=== PATIENT | male | born 1950 | race Native Hawaiian/Other Pacific Islander ===

== ENCOUNTER 2018-04-27 10:43 | Observation (INO) | END 2018-04-28 15:10 | disposition home or self-care (01) | CPT/HCPCS: 36415; 70450; 80053; 83690; 85025; 85610; 96361; 96365; 96375; 96376; 99283; 99284; A9270; G0378; J1170; J1650 ==

== ENCOUNTER 2018-06-16 10:59 | Emergency (ER) | payer MEDICARE ==
[2018-06-16] MEDS ORDERED: SODIUM CHLORIDE 0.9% 1,000 ML IV ONE ×2 (12:36)
[2018-06-16] MEDS ORDERED: PIPERACILLIN/TAZOBACTAM 3.375 GM in SODIUM CHLORIDE 0.9% MINIBAG 100 ML IV STA (12:36)
[2018-06-16] MEDS ORDERED: VANCOMYCIN INJ 1 GM in SODIUM CHLORIDE 0.9% 500 ML IV STA (12:36)
--- NOTE | 2018-06-16 12:40 | ED Physician Documentation ---
History of Present Illness - Stated complaint Stated Complaint: POST SURGICAL COMPLICATIONS - Chief complaint Chief Complaint: General - History obtained from History obtained from: Patient - History of Present Illness Timing: Today Pain level max: 4 Pain level now: 3 Improved by: nothing Worsened by: nothing - Additonal information Additional information: Patient is a 67-year-old male who had surgery on his lumbar spine at [facility] on June [address] Person. Today he woke up in his bed and noticed that she eats for wet with blood. Has noted continued draining from the wound. States has had subjective fevers and chills at home. No vomiting. Does have a recurrent headache. Is not having numbness or tingling in his legs. No loss of bowel or bladder control. 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 HEENT: None Psych: Depression, Post traumatic stress disorder Musculoskeletal: Chronic back pain Derm: None - Past Surgical History Past Surgical History: Yes Ortho: Spine surgery Neuro: Other - Present Medications Home Medications: Ambulatory Orders Medication Instructions Recorded Confirmed Atorvastatin Calcium 20 mg PO QPM 04/27/18 04/27/18 Cyclobenzaprine [Flexeril] 10 mg PO TID PRN 04/27/18 04/27/18 Multivitamin W/Minerals [Theragran 1 each PO DAILY 04/27/18 04/27/18 M] Prazosin HCl [Minipress] 4 mg PO QPM 04/27/18 04/27/18 Prazosin HCl [Minipress] 5 mg PO QPM 04/27/18 04/27/18 Valproic Acid [Depakene] 1,000 mg PO QPM 04/27/18 04/27/18 Vardenafil HCl [Levitra] 20 mg PO PRN PRN 04/27/18 04/27/18 Venlafaxine ER [Effexor ER] 225 mg PO DAILYWM 04/27/18 04/27/18 Zolpidem Tartrate [Ambien] 10 mg PO QPM PRN 04/27/18 04/27/18 raNITIdine HCl [Ranitidine HCl] 300 mg PO QPM 04/27/18 04/27/18 risperiDONE [Risperidone] 2 mg PO QPM 04/27/18 04/27/18 Ibuprofen [Motrin] 600 mg PO Q6HR PRN #60 tablet 04/28/18 Ondansetron [Zofran Odt] 8 mg PO Q8HR PRN #30 tab.rapdis 04/28/18 - Allergies Allergies/Adverse Reactions: Allergies Allergy/AdvReac Type Severity Reaction Status Date / Time bee venom protein (honey bee) Allergy Anaphylaxis Verified 06/16/18 11:09 shellfish derived Allergy Respiratory Verified 06/16/18 11:09 - Social History Does the pt smoke?: No Smoking Status: Never smoker Does the pt drink ETOH?: No Does the pt have substance abuse?: No - Immunizations Immunizations are current?: Yes - POLST Patient has POLST: No POLST Status: Full Code PD ED PE NORMAL - Vitals Vital signs reviewed: Yes - General General: Alert and oriented X 3, No acute distress - HEENT HEENT: Moist mucous membranes - Neck Neck: Supple, no meningeal sign - Cardiac Cardiac: RRR, Strong equal pulses - Respiratory Respiratory: No respiratory distress, Clear bilaterally - Abdomen Abdomen: Soft, Non tender, Non distended - Back Back: Other (low lumbar spine, Wound dehiscence at the distal aspect of the incision. There is bloody purulent drainage from the wound.) - Derm Derm: Warm and dry - Neuro Neuro: Alert and oriented X 3 - Psych Psych: Normal mood, Normal affect Results - Vitals Vitals: Vital Signs - 24 hr 06/16/18 06/16/18 06/16/18 11:06 11:18 14:21 Temperature 36.6 C Heart Rate 106 H 94 91 Respiratory 22 16 15 Rate Blood Pressure 130/85 H 128/72 O2 Saturation 98 97 98 06/16/18 06/16/18 06/16/18 14:49 16:00 16:05 Temperature 98.7 C H Heart Rate 88 94 Respiratory 15 15 Rate Blood Pressure 112/63 115/72 O2 Saturation 97 98 Oxygen O2 Source Room air - Labs Labs: Laboratory Tests 06/16/18 06/16/18 06/16/18 12:50 12:50 13:08 WBC 17.1 H RBC 4.20 L Hgb 13.4 L Hct 38.9 L MCV 92.8 MCH 31.8 H MCHC 34.3 RDW 14.2 Plt Count 339 MPV 6.3 L Neut # (Auto) 15.1 H Lymph # (Auto) 0.5 L [place] # (Auto) 1.4 H Eos # (Auto) 0.0 Baso # (Auto) 0.1 Absolute Nucleated RBC 0.01 Nucleated RBC % 0.1 Sodium 130 L Potassium 4.4 Chloride 99 L Carbon Dioxide 22 Anion Gap 9.0 BUN 9 Creatinine 1.0 Estimated GFR (MDRD) 75 L Glucose 124 H Lactic Acid 1.1 Calcium 8.8 Total Bilirubin 0.8 AST 13 ALT 12 Alkaline Phosphatase 65 Total Protein 6.7 Albumin 3.3 Globulin 3.4 Albumin/Globulin Ratio 1.0 Lipase 23 PD MEDICAL DECISION MAKING - ED course Complexity details: reviewed results, re-evaluated patient, considered differential, d/w patient, d/w health and safety consultant ED course: D/w Dr. Christopher (EPRO) at 1310 and recommends talking to Donny BILLINGSLEY. Spoke with JOSE CRUZ Villavicencio at [address] Christopher called back at 1340 and we are awaiting a bed confirmation at [facility], states unknown ETA but will be today. Bed confirmation received. Pain well controlled. Given vancomycin and Zosyn. Also given IV fluids. Patient transferred to [facility] This document was made in part using voice recognition software. While efforts are made to proofread this document, sound alike and grammatical errors may occur. - Sepsis Event Vital Signs: Vital Signs - 24 hr 06/16/18 06/16/18 06/16/18 11:06 11:18 14:21 Temperature 36.6 C Heart Rate 106 H 94 91 Respiratory 22 16 15 Rate Blood Pressure 130/85 H 128/72 O2 Saturation 98 97 98 06/16/18 06/16/18 06/16/18 14:49 16:00 16:05 Temperature 98.7 C H Heart Rate 88 94 Respiratory 15 15 Rate Blood Pressure 112/63 115/72 O2 Saturation 97 98 Oxygen O2 Source Room air Departure - Departure Disposition: 02 Transfer Acute Care Hosp Clinical Impression: Wound infection after surgery Qualifiers: Encounter type: initial encounter Qualified Code(s): T81.4XXA - Infection following a procedure, initial encounter Condition: Stable Discharge Date/Time: 06/16/18 16:12
[2018-06-16 13:16] LABS: BASOPHILS # (AUTO) 0.1 10^3/uL (0.0-0.1); BASOPHILS % (AUTO) 0.5 %; EOSINOPHILS % (AUTO) 0.2 %; HGB - HEMOGLOBIN 13.4 g/dL (14.0-18.0); LYMPHOCYTES # (AUTO) 0.5 10^3/uL (1.5-3.5); LYMPHOCYTES % (AUTO) 3.1 %; MEAN CORPUSCULAR HEMOGLOBIN 31.8 pg (27.0-31.0); MEAN CORPUSCULAR HGB CONC 34.3 g/dL (32.0-36.0); MEAN CORPUSCULAR VOLUME 92.8 fL (80.0-94.0); MEAN PLATELET VOLUME 6.3 fL (7.4-11.4); MONOCYTES # (AUTO) 1.4 10^3/uL (0.0-1.0); MONOCYTES % (AUTO) 8.1 %; NEUTROPHILS # (AUTO) 15.1 10^3/uL (1.5-6.6); NEUTROPHILS % (AUTO) 88.1 %; PLT - PLATELET COUNT 339 10^3/uL (130-450); RED CELL DISTRIBUTION WIDTH 14.2 % (12.0-15.0); WHITE BLOOD COUNT 17.1 x10^3/uL (4.8-10.8)
[2018-06-16 13:36] LABS: ALBUMIN 3.3 g/dL (3.2-5.5); BILIRUBIN,TOTAL 0.8 mg/dL (0.2-1.0); CALCIUM 8.8 mg/dL (8.5-10.3); TOTAL PROTEIN 6.7 g/dL (6.7-8.2)
[2018-06-16] MEDS ORDERED: HYDROmorphone 1 MG/ML CARPUJECT IVP STA ×2 (13:39→16:02)
[2018-06-16] MEDS ORDERED: VANCOMYCIN INJ 1 GM in SODIUM CHLORIDE 0.9% 250 ML IV STA (13:39)
[2018-06-16 16:01] VITALS: BP 115/72
== END 2018-06-16 16:12 | disposition short-term general hospital (02) ==
LOC: ED 10:59
DX: T81.4XXA Infection following a procedure, initial encounter (principal); B99.9 Unspecified infectious disease; T81.31XA Disruption of external operation (surgical) wound, not elsewhere classified, initial encounter; Y83.8 Other surgical procedures as the cause of abnormal reaction of the patient, or of later complication, without mention of misadventure at the time of the procedure; E11.9 Type 2 diabetes mellitus without complications
CPT/HCPCS: 36415; 80053; 83605; 83690; 85025; 87040; 87070; 87205; 96365; 96366; 96367; 96375; 96376; 99284; J1170; J3370

== ENCOUNTER 2021-05-15 10:00 | Outpatient (CLI) | payer MEDICARE | END 2021-05-15 10:01 | disposition critical access hospital (66) | LOC: EMS 10:00 | DX: R00.2 Palpitations (principal); R61 Generalized hyperhidrosis; R23.2 Flushing; R06.02 Shortness of breath; R53.1 Weakness | CPT/HCPCS: A0425; A0427 ==

== ENCOUNTER 2021-05-15 10:33 | Emergency (ER) | payer MEDICARE ==
[2021-05-15] MEDS: diltiaZEM INJ 5 MG/ML VIAL IVP STA (10:50)
[2021-05-15] MEDS: ASPIRIN CHEW 81 MG TABLET PO STA (11:30)
--- NOTE | 2021-05-15 11:53 | XRAY Report ---
PROCEDURE: Chest 1 View X-Ray INDICATIONS: Chest Pain TECHNIQUE: One view of the chest was acquired. COMPARISON: None FINDINGS: Surgical changes and devices: None. Lungs and pleura: No pleural effusions or pneumothorax. Lungs are clear. Mediastinum: Mediastinal contours appear normal. Heart size is normal. Bones and chest wall: No suspicious bony lesions. Overlying soft tissues appear unremarkable. IMPRESSION: No acute cardiopulmonary disease process. Reviewed by: Valentina Childs MD, PhD on 05/15/2021 11:52 AM PDT Approved by: Valentina Childs MD, PhD on 05/15/2021 11:52 AM PDT Station ID: [id number]
[2021-05-15 11:56] LABS: BASOPHILS # (AUTO) 0.1 10^3/uL (0.0-0.1); BASOPHILS % (AUTO) 1.2 %; EOSINOPHILS % (AUTO) 0.1 %; HCT - HEMATOCRIT 42.3 % (42.0-52.0); HGB - HEMOGLOBIN 14.4 g/dL (14.0-18.0); LYMPHOCYTES # (AUTO) 0.8 10^3/uL (1.5-3.5); LYMPHOCYTES % (AUTO) 10.2 %; MEAN CORPUSCULAR HEMOGLOBIN 27.7 pg (27.0-31.0); MEAN CORPUSCULAR VOLUME 81.3 fL (80.0-94.0); MEAN PLATELET VOLUME 8.1 fL (7.4-11.4); MONOCYTES # (AUTO) 0.6 10^3/uL (0.0-1.0); MONOCYTES % (AUTO) 7.6 %; NEUTROPHILS # (AUTO) 6.5 10^3/uL (1.5-6.6); PLT - PLATELET COUNT 242 10^3/uL (130-450); RED CELL DISTRIBUTION WIDTH 13.6 % (12.0-15.0); WHITE BLOOD COUNT 8.2 x10^3/uL (4.8-10.8)
[2021-05-15 12:09] LABS: ALBUMIN 4.1 g/dL (3.2-5.5); ALBUMIN/GLOBULIN RATIO 1.3 (1.0-2.2); BILIRUBIN,TOTAL 0.6 mg/dL (0.2-1.0); CALCIUM 9.5 mg/dL (8.5-10.3); CREATININE 0.8 mg/dL (0.6-1.2); POTASSIUM 4.4 mmol/L (3.5-5.0); TOTAL PROTEIN 7.2 g/dL (6.7-8.2)
--- NOTE | 2021-05-15 12:35 | ED Physician Documentation ---
PD HPI DYSPNEA - Stated complaint Stated Complaint: SOA/CP - Chief complaint Chief Complaint: Cardiac - History obtained from History obtained from: Patient, EMS - Additional information Additional information: Patient is brought to the emergency department by EMS for high heart rate and shortness of breath. Patient states this started about 5 hours ago and normally, he is able to just rest and waited out and goes away on soon. However, this morning and did not, so the patient called EMS. He states he has been feeling short of breath with the palpitations but denies chest pain. Medics state that when they picked the patient up, his heart rate was 170-180, and they could not tell if the rhythm was SVT or A. fib with RVR. The patient does have a history of A. fib, and gave him 6 then 12 mg of adenosine. The patient's heart rate did finally break and slow down to 70 to 120 bpm. Patient states he is feeling a lot better after getting the heart rate slowed down. Review of Systems Ten Systems: 10 systems reviewed and negative Constitutional: reports: Reviewed and negative Eyes: reports: Reviewed and negative Ears: reports: Reviewed and negative Nose: reports: Reviewed and negative Throat: reports: Reviewed and negative Cardiac: reports: Palpitations Respiratory: reports: Dyspnea GI: reports: Reviewed and negative : reports: Reviewed and negative Skin: reports: Reviewed and negative Musculoskeletal: reports: Reviewed and negative Neurologic: reports: Reviewed and negative Psychiatric: reports: Reviewed and negative Endocrine: reports: Reviewed and negative Immunocompromised: reports: Reviewed and negative PD PAST MEDICAL HISTORY - Past Medical History Cardiovascular: None Respiratory: None Neuro: Headaches, Other Endocrine/Autoimmune: Type 2 diabetes GI: GERD 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 HEENT: None Psych: Depression, Post traumatic stress disorder Musculoskeletal: Chronic back pain Derm: None - Past Surgical History Past Surgical History: Yes Ortho: Spine surgery Neuro: Other - Present Medications Home Medications: Ambulatory Orders Medication Instructions Recorded Confirmed Atorvastatin Calcium 20 mg PO QPM 04/27/18 04/27/18 Cyclobenzaprine [Flexeril] 10 mg PO TID PRN 04/27/18 04/27/18 Multivitamin W/Minerals [Theragran 1 each PO DAILY 04/27/18 04/27/18 M] Prazosin HCl [Minipress] 4 mg PO QPM 04/27/18 04/27/18 Prazosin HCl [Minipress] 5 mg PO QPM 04/27/18 04/27/18 Valproic Acid [Depakene] 1,000 mg PO QPM 04/27/18 04/27/18 Vardenafil HCl [Levitra] 20 mg PO PRN PRN 04/27/18 04/27/18 Venlafaxine ER [Effexor ER] 225 mg PO DAILYWM 04/27/18 04/27/18 Zolpidem Tartrate [Ambien] 10 mg PO QPM PRN 04/27/18 04/27/18 raNITIdine HCL [Ranitidine HCl] 300 mg PO QPM 04/27/18 04/27/18 risperiDONE [Risperidone] 2 mg PO QPM 04/27/18 04/27/18 Ibuprofen [Motrin] 600 mg PO Q6HR PRN #60 tablet 04/28/18 Ondansetron [Zofran Odt] 8 mg PO Q8HR PRN #30 tab.rapdis 04/28/18 dilTIAZem HCL [Diltiazem 24Hr ER 120 mg PO DAILY #30 05/15/21 (Xr)] - Allergies Allergies/Adverse Reactions: Allergies Allergy/AdvReac Type Severity Reaction Status Date / Time bee venom protein (honey bee) Allergy Anaphylaxis Verified 05/15/21 10:46 shellfish derived Allergy Respiratory Verified 05/15/21 10:46 - Social History Does the pt smoke?: No Smoking Status: Never smoker Does the pt drink ETOH?: No Does the pt have substance abuse?: No - Immunizations Immunizations are current?: Yes - POLST Patient has POLST: No POLST Status: Full Code PD ED PE NORMAL - Vitals Vital signs reviewed: Yes - General General: Alert and oriented X 3, No acute distress, Well developed/nourished - HEENT HEENT: Atraumatic, PERRL, EOMI, Moist mucous membranes - Neck Neck: Supple, no meningeal sign - Cardiac Cardiac: No murmur, Strong equal pulses, Other (Irregular rhythm with normal rate) - Respiratory Respiratory: No respiratory distress, Clear bilaterally - Abdomen Abdomen: Soft, Non tender, Non distended - Derm Derm: Normal color, Warm and dry, No rash - Extremities Extremities: No deformity, No edema, No calf tenderness / cord - Neuro Neuro: Alert and oriented X 3 - Psych Psych: Normal mood, Normal affect Results - Vitals Vitals: Vital Signs - 24 hr 05/15/21 05/15/21 05/15/21 10:36 10:53 10:55 Temperature 36.9 C Heart Rate 139 H 95 82 Respiratory 29 H 28 H Rate Blood Pressure 159/98 H 137/77 H O2 Saturation 100 96 05/15/21 05/15/21 05/15/21 11:00 11:30 12:00 Temperature Heart Rate 77 72 80 Respiratory 18 19 29 H Rate Blood Pressure 149/88 H 146/90 H 151/87 H O2 Saturation 99 100 100 05/15/21 12:30 Temperature 36.5 C Heart Rate 78 Respiratory 24 Rate Blood Pressure 153/86 H O2 Saturation 99 Oxygen O2 Source Room air - EKG (time done) 1032 Rate: Rate (enter#) (151) Rhythm: Atrial fibrillation [place]: Normal QRS: Normal Ischemia: Normal ST segments Compare to prior EKG: Old EKG unavailable Computer interpretation: Agree with computer - Labs Labs: Laboratory Tests 05/15/21 05/15/21 05/15/21 11:43 11:43 11:43 WBC 8.2 RBC 5.20 Hgb 14.4 Hct 42.3 MCV 81.3 MCH 27.7 MCHC 34.0 RDW 13.6 Plt Count 242 MPV 8.1 Neut # (Auto) 6.5 Lymph # (Auto) 0.8 L [place] # (Auto) 0.6 Eos # (Auto) 0.0 Baso # (Auto) 0.1 Absolute Nucleated RBC 0.00 Nucleated RBC % 0.0 Sodium 126 L Potassium 4.4 Chloride 93 L Carbon Dioxide 20 L Anion Gap 13.0 BUN 6 Creatinine 0.8 Estimated GFR (MDRD) 96 Glucose 134 H Calcium 9.5 Total Bilirubin 0.6 AST 17 ALT 12 Alkaline Phosphatase 58 Troponin I High Sens B-Natriuretic Peptide 75 Total Protein 7.2 Albumin 4.1 Globulin 3.1 Albumin/Globulin Ratio 1.3 Lipase 34 05/15/21 11:43 WBC RBC Hgb Hct MCV MCH MCHC RDW Plt Count MPV Neut # (Auto) Lymph # (Auto) [place] # (Auto) Eos # (Auto) Baso # (Auto) Absolute Nucleated RBC Nucleated RBC % Sodium Potassium Chloride Carbon Dioxide Anion Gap BUN Creatinine Estimated GFR (MDRD) Glucose Calcium Total Bilirubin AST ALT Alkaline Phosphatase Troponin I High Sens 5.7 B-Natriuretic Peptide Total Protein Albumin Globulin Albumin/Globulin Ratio Lipase - Rads (name of study) CXR Radiology: Final report received, EMP read indepedently, See rad report (neg) PD MEDICAL DECISION MAKING - ED course Complexity details: reviewed results, re-evaluated patient, considered differential, d/w patient ED course: The patient's heart rate was noted to increase again shortly after arrival and he was given IV diltiazem for this. Patient responded very well and was found to have a heart rate fluctuating between the 70s and low 100s on reevaluation. I did review the medication list and found the patient is not on any medication for his atrial fibrillation. I have started him on long-acting Cardizem 120 mg daily, but have advised him to follow-up with his primary care physician to determine whether this is a good long-term choice of medication and dose. The patient ambulated in the emergency department, and his labs were unremarkable overall. Specifically, troponin was negative. Patient reported feeling much better. We have discussed home management of symptoms and the usual indications for return. Departure - Departure Disposition: 01 Home, Self Care Clinical Impression: Atrial fibrillation with rapid ventricular response Condition: Stable Instructions: ED Afib Prescriptions: dilTIAZem HCL [Diltiazem 24Hr ER (Xr)] 120 mg PO DAILY #30 Comments: Your labs look good. Your heart rate was quite high when he first came, but has been well controlled with a medication called diltiazem. We will put you on this same medication by mouth at home, but you should follow-up with your primary care physician or [facility] to discuss whether this is a good long- term medication and dose for you. If you develop a very high heart rate again, especially with shortness of breath and chest pain, please return to the emergency department. Discharge Date/Time: 05/15/21 12:57
[2021-05-15 12:40] VITALS: BP 153/86
== END 2021-05-15 12:57 | disposition home or self-care (01) ==
LOC: EDBD → EDUNIT# → ED 10:33
DX: I48.91 Unspecified atrial fibrillation (principal); E11.9 Type 2 diabetes mellitus without complications
CPT/HCPCS: 36415; 71045; 80053; 83690; 83880; 84484; 85025; 93005; 96374; 99284; A9270